=== PATIENT | male | born 2005 | race Two or more races ===

== ENCOUNTER 2023-01-31 18:57 | Emergency (ER) | payer MEDICAID, OTHER ==
[~2023-01-31] VITALS: Ht 175.3 cm; Wt 72.7 kg
[2023-01-31] MEDS ORDERED: IBU600T PO (22:19)
[2023-01-31 22:40] VITALS: BP 123/65
== END 2023-01-31 22:40 | disposition home or self-care (01) ==
LOC: EDBD 18:57 → ER 19:04
DX: S83.92XA Sprain of unspecified site of left knee, initial encounter (principal); S83.91XA Sprain of unspecified site of right knee, initial encounter; S00.83XA Contusion of other part of head, initial encounter; Z79.1 Long term (current) use of non-steroidal anti-inflammatories (NSAID); V89.2XXA Person injured in unspecified motor-vehicle accident, traffic, initial encounter; Y93.89 Activity, other specified; Y92.89 Other specified places as the place of occurrence of the external cause; Y99.8 Other external cause status
CPT/HCPCS: 70450; 73562